=== PATIENT | male | born 1955 | race Caucasian/White ===

== ENCOUNTER 2016-11-26 10:37 | Emergency (ER) | payer BC ==
[~2016-11-26] VITALS: Ht 180.3 cm; Wt 120.2 kg
--- NOTE | 2016-11-26 12:05 | Urgent Treatment Center Report ---
History of Present Issue Date/Time Seen by Provider 11/26/16 1134 Visit Reason Pt arrived:Walked Presenting Problem:PULLED A MUSCLE IN HIS BACK Location if Accident: Onset of symptoms date/time:11/26/16/ or onset unknown for:MEDICAL HX UNKNOWN Have you (or family members/close friends) recently traveled outside the [place]? N If Yes, where/when: Have you had exposure to infectious disease within the past month? TB? Other? Specify: Patient state that a couple of weeks ago he was trying on some jeans and as he lifted his leg to put it in the jeans he felt something in his lower back pull. State that he has been having pain ever since. State that he went to the [facility] and they saw him and gave him some Naproxen and Muscle relaxers but he is still having pain and not feeling any better ALLERGIES Coded Allergies: No Known Allergies (11/26/16) Home Medications Reported Medications Lisinopril 10 MG PO DAILY History Medical History General CAD? No Angina: No CA: No Hypertension? Yes Hyperlipidemia? No CHF? No DVT? No PE? No COPD? No Asthma? No Anemia? No GERD? No Gastric ulcers? No GI Bleed? No Hernia? No Thyroid Problems? No Hypothyroidism? No CVA? No Seizures? No Diabetes? No Renal Insuffiency? No UTI? No Stones? No BPH? No GB Disease: No Nephritic Syndrome? No Asplenia? No Hepatitis? No Sickle Cell Disease? No Arthritis? No Migraines? No Cataracts? No Glaucoma? No MRSA? No HIV? No TB? No Anxiety? No Depression? No Cancer? No More? No Immunization HX DT/Tetanus Unknown Surgical Hx Previous Surgery?Y GALLBLADDER Social History Smoking Hx Smoker: Never Smoker Tobacco: No Alcohol Alcohol: No Review of Systems All Other Systems Reviewed and Negative Physical Exam Vital Signs Vital Signs Date Time Temp Pulse Resp B/P Pulse O2 O2 Flow FiO2 Ox Delivery Rate 11/26 1118 18 11/26 1050 98.3 85 18 178/95 98 11/26 1041 98.3 85 18 98 General Appearance normal appearance, WD/WN, no apparent distress Respiratory Status Yes: trachea midline, chest symmetrical, non tender chest. No: respiratory distress. Cardiovascular normal exam, regular rate/rhythm, no peripheral edema, no gallop Back normal inspection, Pain in lower lumbar area of back, muscles tight tenderness noted, denies radiation to lower extremities denies bowel and bladder involvement Neurologic alert, sale professional digital marketing II-XII nml as tested, normal exam, no motor/sensory deficits, oriented x 3 Medical Decision Making LABS/Meds/Orders Pt receiving controlled substance in ED? No Results/Orders Current Medication Orders Sig/Beatriz Start time Last Medication Dose Route Stop Time Status Admin Ketorolac 60 MG ONCE ONE 11/26 1115 DC 11/26 Tromethamine IM 11/26 111 1118 Orphenadrine Citrate 60 MG ONCE ONE 11/26 1115 DC 11/26 IM 11/26 111 1118 Orphenadrine Citrate 0 .STK-MED ONE 11/26 1108 DC .ROUTE Ketorolac 0 .STK-MED ONE 11/26 1107 DC Tromethamine .ROUTE Orders Procedure Date/time Status LUMBAR SPINE 5 VIEWS 11/26 111 Active XRAY/CT/US XRAY/CT/US XRAY L-spine XR interpretation by reviewed by me Xray Results no fracture seen Comment muscle spasm/ lumbar strain/sprain Departure Departure Time of Disposition 1201 Disposition DC Home or Self Care(routine) Clinical Impression Primary Impression: Muscle spasm Secondary Impressions: Lumbar sprain Qualifiers: Encounter type: initial encounter Qualified Code: S33.5XXA - Sprain of ligaments of lumbar spine, initial encounter Condition STABLE Patient Instructions DI for Low Back Pain, DI for Muscle Spasm Additional Instructions Follow up with family doctor for further treatment No heavy lifting Take medication as prescribed Return if needed Stop taking Naproxen and start taking Etodolac Discharge Counseling Counseled pt/family regarding diagnosis, test results, medications/RX, home care, follow up needs Prescriptions Current Visit Scripts Etodolac 200 MG PO QID #20 CAP Cyclobenzaprine Hcl (Flexeril) 10 MG PO TID #15 TAB at 1205
[2016-11-26 12:06] VITALS: BP 178/95
--- NOTE | 2016-11-26 14:52 | RADIOLOGY REPORT PS360 ---
EXAM: LUMBAR SPINE 5 VIEWS HISTORY: back pain ORDERING PHYSICIAN: ANGELINA OSPINA APRN PATIENT AGE: 61 years COMPARISON: None FINDINGS: Normal alignment. No fracture or dislocation. No lytic or blastic change. No significant degenerative change. The disc spaces are preserved. Minimal osteophytes are present at L3 and L5. On the right posterior oblique view there are small nodular opacities overlying the right kidney. These could be due to renal stones or even gallstones. IMPRESSION: 1. No acute finding in the lumbar spine with minimal spondylosis. 2. Right upper quadrant opacities which may be due to renal stones or gallstones
== END 2016-11-26 12:18 | disposition home or self-care (01) ==
LOC: ER 10:37 → UTC 10:37
DX: S33.5XXA Sprain of ligaments of lumbar spine, initial encounter (principal); M62.830 Muscle spasm of back; X50.9XXA Other and unspecified overexertion or strenuous movements or postures, initial encounter; Y92.9 Unspecified place or not applicable; I10 Essential (primary) hypertension; Z79.899 Other long term (current) drug therapy